=== PATIENT | female | born 1990 | race Caucasian/White ===

== ENCOUNTER → 2017-05-28 | Outpatient (CLI) | payer OTHER ==
[~2017-05-28] MED LIST: ALBU90OI6 INH; AMOX500 PO; AZIT250 PO; BCP'S; CEPH500 PO; CLIN300 PO; CYCL10 PO; Cyclobenzaprine5 MG PO; DIPH50; HYDACE5 PO; HYDHCL25 PO; IBUP800 PO; LEVSOD100; LEVSOD137 PO; METF500; Norco 5-325 Ta1 EACH PO; ONDA4ODT MM; OXYACE5T PO; PENVK500 PO; POTCHL10ER PO; PROBIOTICS; PROC10 PO; PROM25 PO; RANI150 PO; RXCLIN PO; RXHYDACE PO; RXONDA4ODT MM; RXOXYACE PO; RXSULTRIDS PO; SPIR25 PO; SULTRIDS PO; TETR250 PO; THYR60 PO; VICODIN 5-3001 EACH PO
== END | disposition home or self-care (01) ==
LOC: LAB 16:33
DX: N89.8 Other specified noninflammatory disorders of vagina (principal)
CPT/HCPCS: 87070; 87147; 87205

== ENCOUNTER 2017-05-30 16:03 | Emergency (ER) | payer OTHER ==
[~2017-05-30] VITALS: Ht 175.3 cm; Wt 108.4 kg
[~2017-05-30 16:03] MED LIST changes: -CLIN300 PO; -Cyclobenzaprine5 MG PO; -Norco 5-325 Ta1 EACH PO; -POTCHL10ER PO
[2017-05-30] MEDS ORDERED: POTCHL10ER PO (16:14)
[2017-05-30] MEDS ORDERED: CLIN300 PO (16:14)
[2017-05-30] MEDS ORDERED: Cyclobenzaprine5 MG PO (17:28)
[2017-05-30] MEDS ORDERED: Norco 5-325 Ta1 EACH PO (17:28)
== END 2017-05-30 17:32 | disposition home or self-care (01) ==
LOC: ER 16:03
DX: G89.29 Other chronic pain (principal); M54.5 Low back pain; Z88.0 Allergy status to penicillin; Z88.1 Allergy status to other antibiotic agents; Z88.8 Allergy status to other drugs, medicaments and biological substances; Z79.899 Other long term (current) drug therapy; Z79.2 Long term (current) use of antibiotics; E03.9 Hypothyroidism, unspecified; Z87.891 Personal history of nicotine dependence
CPT/HCPCS: 99283

== ENCOUNTER → 2017-06-15 | Outpatient (CLI) | payer OTHER ==
[~2017-06-15] MED LIST changes: +CLIN300 PO; +Cyclobenzaprine5 MG PO; +Norco 5-325 Ta1 EACH PO; +POTCHL10ER PO
== END | disposition home or self-care (01) ==
LOC: LAB 10:54
DX: N89.8 Other specified noninflammatory disorders of vagina (principal)
CPT/HCPCS: 87070; 87205

== ENCOUNTER → 2018-10-04 | Outpatient (CLI) | payer OTHER | END | disposition home or self-care (01) | LOC: LAB 16:05 → LAB SHORT 16:05 | PROVIDERS: Obstetrics & Gynecology | DX: Z01.419 Encounter for gynecological examination (general) (routine) without abnormal findings (principal) | CPT/HCPCS: G0123 ==

== ENCOUNTER 2019-06-29 03:55 | Emergency (ER) | payer OTHER | END 2019-06-29 04:52 | disposition left against medical advice (07) | LOC: ER 03:55 | DX: Z53.21 Procedure and treatment not carried out due to patient leaving prior to being seen by health care provider (principal) ==

== ENCOUNTER → 2020-06-07 | Outpatient (CLI) | payer OTHER ==
[2020-06-07 21:23] LABS: Calcium, Urine 8.2 mg/dL (< 17.5); Calcium, Urine Calculation 311.6 mg/24hrs (42.0-353.0)
== END ==
LOC: LAB SHORT 11:00 → LAB 11:00 → LAB FUT 06-04 11:20
PROVIDERS: Internal Medicine Nephrology
DX: N18.2 Chronic kidney disease, stage 2 (mild) (principal); D63.1 Anemia in chronic kidney disease
CPT/HCPCS: 81050; 82340; 84133

== ENCOUNTER 2020-09-06 06:59 | Day surgery (SDC) | payer OTHER ==
[~2020-09-06] VITALS: Ht 175.3 cm; Wt 92.9 kg
[~2020-09-06 06:59] MED LIST changes: +ARMOUR THYROID120 MG PO; +ARMOUR THYROID90 MG PO; +ASCO500 PO; +Aldactone25 MG PO; +COENZYME Q PO; +LACTOBACILLUS RHAMNO PO; +MAGNESIUM OXID500 MG PO; +POTCHL20ER PO; +VITAMIN D5000 UNIT PO
[2020-09-06] MEDS ORDERED: AMIL5 PO (07:48)
== END 2020-09-06 09:00 | disposition home or self-care (01) ==
LOC: ORSCSDS 06:59
PROVIDERS: Student in an Organized Health Care Education/Training Program
PROC: 0DB68ZX Excision of Stomach, Via Natural or Artificial Opening Endoscopic, Diagnostic (ICD-10-PCS; principal; 2020-09-06 08:15)
PROC: 0DB98ZX Excision of Duodenum, Via Natural or Artificial Opening Endoscopic, Diagnostic (ICD-10-PCS; principal; 2020-09-06 08:15)
PROC: 0DB58ZX Excision of Esophagus, Via Natural or Artificial Opening Endoscopic, Diagnostic (ICD-10-PCS; principal; 2020-09-06 08:15)
DX: R11.0 Nausea (principal); I89.0 Lymphedema, not elsewhere classified; Z87.891 Personal history of nicotine dependence; Z79.899 Other long term (current) drug therapy
CPT/HCPCS: 88305; J0330; J0461; J2250; J2405; J2704; J7120

== ENCOUNTER → 2020-10-12 | Outpatient (CLI) | payer OTHER ==
[~2020-10-12] MED LIST changes: +AMIL5 PO
[2020-10-18 01:10] LABS: INORG. AS/CRT RATIO 9 (0-9)
== END ==
LOC: LAB SHORT 11:00 → OLS 11:00
PROVIDERS: Internal Medicine Nephrology
DX: E87.6 Hypokalemia (principal); E83.39 Other disorders of phosphorus metabolism
CPT/HCPCS: 81050; 82175; 82570; 83655; 83825

== ENCOUNTER → 2021-11-04 | Outpatient (CLI) | payer OTHER ==
[2021-11-05 15:08] LABS: HPV 16 Negative (Negative); HPV 18 Negative (Negative); HPV OTHER HR TYPES Negative (Negative)
== END | disposition home or self-care (01) ==
LOC: LAB SHORT 16:00 → LAB 16:00
PROVIDERS: Obstetrics & Gynecology
DX: Z12.4 Encounter for screening for malignant neoplasm of cervix (principal)
CPT/HCPCS: 87624; G0123

== ENCOUNTER → 2021-11-10 | Outpatient (CLI) | payer OTHER ==
[2021-11-11 19:06] LABS: Creatinine Urine 29.8 mg/dL (27.00-270.00); Protein, Urine Quantitative 6.7 mg/dL (0.0-11.9)
[2021-11-11 20:16] LABS: Calcium, Urine 7.1 mg/dL (< 17.5); Calcium, Urine Calculation 362.1 mg/24hrs (42.0-353.0)
[2021-11-12 12:26] LABS: Microalbumin, Urine Quant. 46.9 mg/L (0.000-20.000)
== END | disposition home or self-care (01) ==
LOC: LAB SHORT 10:00 → LAB FUT 08-26 15:35 → EDSTATUS 08-26 15:35
PROVIDERS: Internal Medicine Nephrology
DX: N18.2 Chronic kidney disease, stage 2 (mild) (principal); D63.1 Anemia in chronic kidney disease; E55.9 Vitamin D deficiency, unspecified; D50.9 Iron deficiency anemia, unspecified; N25.81 Secondary hyperparathyroidism of renal origin; R76.9 Abnormal immunological finding in serum, unspecified; R94.5 Abnormal results of liver function studies; R94.6 Abnormal results of thyroid function studies
CPT/HCPCS: 81050; 82043; 82340; 82570; 84133; 84156; 84300

== ENCOUNTER → 2022-06-18 | Outpatient (CLI) | payer OTHER ==
[2022-06-19 18:36] LABS: Creatinine Urine 34.8 mg/dL (27.00-270.00); Protein, Urine Quantitative 5.9 mg/dL (0.0-11.9)
[2022-06-19 18:39] LABS: Microalbumin, Urine Quant. 61.2 mg/L (0.000-20.000)
== END | disposition home or self-care (01) ==
LOC: LAB SHORT 10:00
PROVIDERS: Internal Medicine Nephrology
DX: N18.2 Chronic kidney disease, stage 2 (mild) (principal); D63.1 Anemia in chronic kidney disease; N25.81 Secondary hyperparathyroidism of renal origin; E55.9 Vitamin D deficiency, unspecified; E78.00 Pure hypercholesterolemia, unspecified; R76.9 Abnormal immunological finding in serum, unspecified; R94.6 Abnormal results of thyroid function studies; R94.5 Abnormal results of liver function studies
CPT/HCPCS: 81050; 82043; 82570; 84156

== ENCOUNTER → 2022-07-22 | Outpatient (CLI) | payer OTHER ==
[2022-07-22 11:49] LABS: Albumin, Blood 4.2 g/dL (3.4-5.0); Albumin/Globulin Ratio 1.2 (0.8-1.8); Bilirubin, Total 0.6 mg/dL (0.1-1.0); Bun/Creatinine Ratio 12.9 (12.0-20.0); Calcium, Blood 9.2 mg/dL (8.5-10.1); Creatinine, Blood 0.7 mg/dL (0.40-1.00); Globulin, Blood 3.5 g/dL (2.2-4.0); Magnesium, Blood 2.4 mg/dL (1.6-2.4); Phosphorus, Blood 2.3 mg/dL (2.5-4.9); Potassium, Blood 3.5 mmol/L (3.5-5.5); Total Protein, Blood 7.7 g/dL (6.4-8.2)
== END | disposition home or self-care (01) ==
LOC: LAB 10:57 → LAB SHORT 10:57
PROVIDERS: Physician Assistant Medical
DX: E87.6 Hypokalemia (principal)
CPT/HCPCS: 80053; 82550; 83735; 84100

== ENCOUNTER → 2022-10-23 | Outpatient (CLI) | payer OTHER ==
[2022-10-23 15:20] LABS: Protein, Urine Quantitative 27.4 mg/dL (0.0-11.9)
== END | disposition home or self-care (01) ==
LOC: LAB SHORT 09:30 → LAB 09:30
PROVIDERS: Internal Medicine Nephrology
DX: R80.9 Proteinuria, unspecified (principal)
CPT/HCPCS: 81050; 84156

== ENCOUNTER → 2024-11-07 | Outpatient (CLI) | payer MEDICARE, OTHER ==
[2024-11-07 16:28] LABS: Protein, Urine Quantitative 9.8 mg/dL (0.0-11.9)
[2024-11-07 16:47] LABS: Creatinine Urine 37.1 mg/dL (27.00-270.00); Microalbumin, Urine Quant. 46.1 mg/L (0.000-20.000)
== END | disposition home or self-care (01) ==
LOC: LAB SHORT 08:30 → LAB 08:30
PROVIDERS: Internal Medicine Nephrology
DX: N18.2 Chronic kidney disease, stage 2 (mild) (principal); D63.1 Anemia in chronic kidney disease; N25.81 Secondary hyperparathyroidism of renal origin; E55.9 Vitamin D deficiency, unspecified; E78.00 Pure hypercholesterolemia, unspecified; R76.9 Abnormal immunological finding in serum, unspecified; R94.5 Abnormal results of liver function studies
CPT/HCPCS: 81050; 82043; 82570; 84156